=== PATIENT | female | born 1980 | race Caucasian/White ===

== ENCOUNTER 2016-06-26 02:29 | Inpatient (IN) | payer OTHER ==
[~2016-06-26] VITALS: Ht 165.1 cm; Wt 110.7 kg
[2016-06-26] MEDS ORDERED: ONDANSETRON 4 MG VIAL ONE ×2 (04:11→07:56)
[2016-06-26] MEDS ORDERED: DILAUDID 1 MG/ML AMP ONE ×4 (04:22→08:18)
[2016-06-26] MEDS ORDERED: VANCOMYCIN 2,250 MG in SODIUM CHLORIDE 0.9% 500 ML IV ONE (08:25)
[2016-06-26] MEDS ORDERED: ACETAMINOPHEN 325 MG TAB PO PRN (08:30)
[2016-06-26] MEDS ORDERED: GLUCAGON 1 MG VIAL IM PRN (08:30)
[2016-06-26] MEDS ORDERED: ALU/MAG/SIM 30 ML UDC PO PRN (08:30)
[2016-06-26] MEDS ORDERED: DEXTROSE 50% SYRINGE 50 ML IV PRN (08:30)
[2016-06-26] MEDS ORDERED: BISACODYL 10 MG SUPP RECTAL PRN (08:30)
[2016-06-26] MEDS ORDERED: PHARMACY TO DOSE IV SCH (08:30)
[2016-06-26] MEDS ORDERED: SALINE FLUSH 10 ML FLUSH PRN (08:30)
[2016-06-26] MEDS ORDERED: BISACODYL EC 5 MG TAB PO PRN (08:30)
[2016-06-26] MEDS ORDERED: PHARMACY TO DOSE LEVAQUIN IV SCH (08:40)
[2016-06-26] MEDS ORDERED: humuLIN REG INSULIN ONE (09:24)
[2016-06-26] MEDS ORDERED: LIDOCAINE 2% SYR 5 ML IV ONE (10:25)
[2016-06-26] MEDS ORDERED: ROCURONIUM 50 MG VIAL IV ONE (10:25)
[2016-06-26] MEDS ORDERED: DEXAMETHASONE 4 MG/ML VIAL IV ONE (10:25)
[2016-06-26] MEDS ORDERED: FENTANYL 100 MCG/2 ML AMP IV ONE (10:25)
[2016-06-26] MEDS ORDERED: ESMOLOL 100 MG/10 ML VL IV ONE (10:25)
[2016-06-26] MEDS ORDERED: ONDANSETRON 4 MG VIAL IV PUSH ONE (10:25)
[2016-06-26] MEDS ORDERED: PROPOFOL 20 ML PER ML IV ONE (10:25)
[2016-06-26] MEDS ORDERED: NEOSTIGMINE 10 MG/10 ML VIAL IV ONE (10:25)
[2016-06-26] MEDS ORDERED: SUCCINYLCHOLINE 20 MG/ML VL IV ONE (10:25)
[2016-06-26] MEDS ORDERED: GLYCOPYRROLATE 0.2 MG/ML VIAL IV ONE (10:25)
[2016-06-26 11:33] VITALS: BP_SYST 112; RESP 20; TEMP 97.5
[2016-06-26 11:38] VITALS: BMI 40.6
[2016-06-26] MEDS ORDERED: ADD HEIGHT XX SCH (11:38)
[2016-06-26] MEDS ORDERED: [UNRECOGNIZED DRUG - OTHER] XX SCH (11:38)
[2016-06-26] MEDS ORDERED: MORPHINE 2 MG/ML SYR IV PRN (13:00)
[2016-06-26] MEDS: MORPHINE 4 MG/ML SYR IV PRN ×2 (13:09→16:00)
[2016-06-26] MEDS: ONDANSETRON 4 MG VIAL IV PRN ×2 (13:55→20:46)
[2016-06-26 14:58] VITALS: BP_SYST 118; RESP 20; TEMP 97.8
[2016-06-26] MEDS: DILAUDID 1 MG/ML AMP IV PRN ×2 (19:23→23:27)
[2016-06-26] MEDS ORDERED: VANCOMYCIN 1,000 MG in SODIUM CHLORIDE 0.9% 250 ML IV SCH (20:00)
[2016-06-26] MEDS: SALINE FLUSH 10 ML FLUSH SCH (20:24)
[2016-06-26] MEDS: FAMOTIDINE 20 MG TAB PO SCH (20:24)
[2016-06-26] MEDS: SACCHA BOULARDII 250MG CAP PO SCH (20:24)
[2016-06-26] MEDS: VANCOMYCIN 1,250 MG in SODIUM CHLORIDE 0.9% 250 ML IV SCH (20:25)
[2016-06-26 20:40] VITALS: BP_SYST 118; RESP 20; TEMP 97.1
[2016-06-26 23:41] VITALS: BP_SYST 130; RESP 20; TEMP 97.8
[2016-06-27] MEDS: ONDANSETRON 4 MG VIAL IV PRN ×4 (01:21→23:00)
[2016-06-27 04:55] VITALS: BP_SYST 115; RESP 20; TEMP 97.3
[2016-06-27] MEDS: DILAUDID 1 MG/ML AMP IV PRN ×5 (05:06→23:01)
[2016-06-27] MEDS: VANCOMYCIN 1,250 MG in SODIUM CHLORIDE 0.9% 250 ML IV SCH ×3 (05:07→20:00)
[2016-06-27] MEDS: SODIUM CHLORIDE 0.9% FLUSH BAG 500 ML IV SCH (05:07)
[2016-06-27 07:47] VITALS: BP_SYST 122; RESP 20; TEMP 96.8
[2016-06-27] MEDS: SACCHA BOULARDII 250MG CAP PO SCH ×2 (09:13→20:44)
[2016-06-27] MEDS: FAMOTIDINE 20 MG TAB PO SCH ×2 (09:14→20:44)
[2016-06-27] MEDS: SALINE FLUSH 10 ML FLUSH SCH ×2 (09:15→20:38)
[2016-06-27] MEDS: LEVOFLOXACIN 500 MG/100 ML 100 ML IV SCH (09:15)
[2016-06-27 09:19] VITALS: Ht 165.1 cm; Wt 110.7 kg
[2016-06-27 12:39] VITALS: BP_SYST 102; RESP 20; TEMP 96.9
[2016-06-27 16:45] VITALS: BP_SYST 108; RESP 20; TEMP 97.2
[2016-06-27 20:00] VITALS: BP_SYST 110; RESP 20; TEMP 97.8
[2016-06-27] MEDS: VANCOMYCIN 1,750 MG in SODIUM CHLORIDE 0.9% 500 ML IV SCH (21:17)
[2016-06-27 23:14] VITALS: BP_SYST 100; RESP 20; TEMP 97.5
[2016-06-28 03:00] VITALS: BP_SYST 116; RESP 20; TEMP 97.3
[2016-06-28] MEDS: ONDANSETRON 4 MG VIAL IV PRN ×3 (04:09→12:18)
[2016-06-28] MEDS: DILAUDID 1 MG/ML AMP IV PRN ×5 (04:17→22:34)
[2016-06-28] MEDS: MAG HYDROX 30 ML UDC PO PRN (04:23)
[2016-06-28] MEDS: VANCOMYCIN 1,750 MG in SODIUM CHLORIDE 0.9% 500 ML IV SCH ×2 (04:25→13:00)
[2016-06-28] MEDS: SODIUM CHLORIDE 0.9% FLUSH BAG 500 ML IV SCH (04:28)
[2016-06-28 07:29] VITALS: BP_SYST 122; RESP 16; TEMP 97.8
[2016-06-28] MEDS: SALINE FLUSH 10 ML FLUSH SCH ×2 (08:52→21:18)
[2016-06-28] MEDS: LEVOFLOXACIN 500 MG/100 ML 100 ML IV SCH (08:53)
[2016-06-28] MEDS: FAMOTIDINE 20 MG TAB PO SCH ×2 (08:55→21:34)
[2016-06-28] MEDS: SACCHA BOULARDII 250MG CAP PO SCH ×2 (08:56→21:20)
[2016-06-28 11:29] VITALS: BP_SYST 122; RESP 16; TEMP 96.8
[2016-06-28] MEDS ORDERED: PROMETHAZINE 25 MG/ML VIAL IV PRN (13:00)
[2016-06-28 15:53] VITALS: BP_SYST 122; RESP 16; TEMP 97.4
[2016-06-28] MEDS: TETRAHYDROZOLINE HCL 15 ML BTL EYE EACH SCH ×2 (16:59→21:18)
[2016-06-28] MEDS: TOBRAMYCIN EAR LT SCH ×2 (17:00→22:28)
[2016-06-28] MEDS: DEXAMETH OP EAR LT SCH ×2 (17:00→22:28)
[2016-06-28 19:17] VITALS: BP_SYST 128; RESP 18; TEMP 97.2
[2016-06-28] MEDS: LEVEMIR INSULIN SUBQ SCH (21:25)
[2016-06-28 22:46] VITALS: BP_SYST 112; RESP 18; TEMP 97.6
[2016-06-28] MEDS ORDERED: MISSING DOSE XX ONE (23:00)
[2016-06-29 04:50] VITALS: BP_SYST 126; RESP 18; TEMP 97.6
[2016-06-29] MEDS: DILAUDID 1 MG/ML AMP IV PRN ×5 (04:58→22:49)
[2016-06-29] MEDS: SODIUM CHLORIDE 0.9% FLUSH BAG 500 ML IV SCH (05:25)
[2016-06-29 08:15] VITALS: BP_SYST 124; RESP 22; TEMP 99.1
[2016-06-29] MEDS: TOBRAMYCIN EAR LT SCH ×3 (10:06→21:16)
[2016-06-29] MEDS: SALINE FLUSH 10 ML FLUSH SCH ×2 (10:06→21:16)
[2016-06-29] MEDS: DEXAMETH OP EAR LT SCH ×3 (10:06→21:16)
[2016-06-29] MEDS: TETRAHYDROZOLINE HCL 15 ML BTL EYE EACH SCH ×3 (10:06→21:16)
[2016-06-29] MEDS: SACCHA BOULARDII 250MG CAP PO SCH ×2 (10:07→21:16)
[2016-06-29] MEDS: LEVOFLOXACIN 750 MG TAB PO SCH (10:07)
[2016-06-29] MEDS: FAMOTIDINE 20 MG TAB PO SCH ×2 (10:07→21:17)
[2016-06-29 10:51] VITALS: BP_SYST 114; RESP 22; TEMP 98.3
[2016-06-29] MEDS: MAG HYDROX 30 ML UDC PO PRN (14:18)
[2016-06-29 15:05] VITALS: BP_SYST 90; RESP 16; TEMP 98.6
[2016-06-29] MEDS: ONDANSETRON 4 MG VIAL IV PRN ×2 (17:38→18:43)
[2016-06-29 19:18] VITALS: BP_SYST 102; RESP 18; TEMP 98.6
[2016-06-29] MEDS: LEVEMIR INSULIN SUBQ SCH (21:55)
[2016-06-29] MEDS ORDERED: NYSTATIN 500,000 UNITS/5 ML SUSP SWISH.SWAL ONE (22:07)
[2016-06-29] MEDS ORDERED: DOCUSATE SOD 100 MG CAP PO ONE (22:07)
[2016-06-29] MEDS ORDERED: FLUCONAZOLE 100 MG TAB PO ONE (22:10)
[2016-06-29 23:39] VITALS: BP_SYST 102; RESP 20; TEMP 98
[2016-06-30 03:46] VITALS: BP_SYST 98; RESP 18; TEMP 97.6
[2016-06-30] MEDS: DILAUDID 1 MG/ML AMP IV PRN ×3 (04:17→20:42)
[2016-06-30] MEDS: SODIUM CHLORIDE 0.9% FLUSH BAG 500 ML IV SCH (06:00)
[2016-06-30 08:03] VITALS: BP_SYST 102; RESP 18; TEMP 98
[2016-06-30] MEDS: SALINE FLUSH 10 ML FLUSH SCH ×2 (08:47→20:38)
[2016-06-30] MEDS ORDERED: CYCLOBENZAPRINE 5 MG TAB PO PRN (09:15)
[2016-06-30] MEDS: POLYETHYLENE GLYCOL 17 GM PACKET PO SCH ×2 (09:50→20:40)
[2016-06-30] MEDS: TETRAHYDROZOLINE HCL 15 ML BTL EYE EACH SCH ×3 (09:58→20:39)
[2016-06-30] MEDS: SACCHA BOULARDII 250MG CAP PO SCH ×2 (09:58→20:39)
[2016-06-30] MEDS: DOCUSATE SOD 100 MG CAP PO SCH ×2 (09:58→20:39)
[2016-06-30] MEDS: DEXAMETH OP EAR LT SCH ×3 (09:58→20:39)
[2016-06-30] MEDS: LEVOFLOXACIN 750 MG TAB PO SCH (09:58)
[2016-06-30] MEDS: TOBRAMYCIN EAR LT SCH ×3 (09:58→20:39)
[2016-06-30] MEDS: NYSTATIN 500,000 UNITS/5 ML SUSP SWISH.SWAL SCH ×4 (09:59→20:40)
[2016-06-30] MEDS: FLUCONAZOLE 100 MG TAB PO SCH (09:59)
[2016-06-30] MEDS: FAMOTIDINE 20 MG TAB PO SCH ×2 (09:59→20:40)
[2016-06-30 11:51] VITALS: BP_SYST 112; RESP 18; TEMP 98.1
[2016-06-30 15:47] VITALS: BP_SYST 114; RESP 22; TEMP 97.9
[2016-06-30] MEDS: ACETAMIN/BUTALB/CAFF PO PRN (18:26)
[2016-06-30 20:13] VITALS: BP_SYST 130; RESP 18; TEMP 97.8
[2016-06-30] MEDS: LEVEMIR INSULIN SUBQ SCH (20:41)
[2016-06-30] MEDS: ONDANSETRON 4 MG VIAL IV PRN (20:42)
[2016-07-01 00:20] VITALS: BP_SYST 126; RESP 20; TEMP 98.1
[2016-07-01] MEDS: DILAUDID 1 MG/ML AMP IV PRN ×3 (04:04→17:15)
[2016-07-01 05:00] VITALS: BP_SYST 112; RESP 20; TEMP 97.1
[2016-07-01] MEDS: SODIUM CHLORIDE 0.9% FLUSH BAG 500 ML IV SCH (07:46)
[2016-07-01] MEDS: SALINE FLUSH 10 ML FLUSH SCH ×2 (08:24→21:55)
[2016-07-01] MEDS: TETRAHYDROZOLINE HCL 15 ML BTL EYE EACH SCH ×3 (08:25→22:06)
[2016-07-01] MEDS: DOCUSATE SOD 100 MG CAP PO SCH ×2 (08:25→21:58)
[2016-07-01] MEDS: TOBRAMYCIN EAR LT SCH ×3 (08:25→22:05)
[2016-07-01] MEDS: DEXAMETH OP EAR LT SCH ×3 (08:25→22:05)
[2016-07-01] MEDS: FLUCONAZOLE 100 MG TAB PO SCH (08:26)
[2016-07-01] MEDS: FAMOTIDINE 20 MG TAB PO SCH ×2 (08:26→21:58)
[2016-07-01] MEDS: NYSTATIN 500,000 UNITS/5 ML SUSP SWISH.SWAL SCH ×4 (08:26→22:08)
[2016-07-01] MEDS: SACCHA BOULARDII 250MG CAP PO SCH ×2 (08:26→21:58)
[2016-07-01] MEDS: POLYETHYLENE GLYCOL 17 GM PACKET PO SCH ×2 (08:28→21:56)
[2016-07-01] MEDS: LEVOFLOXACIN 750 MG TAB PO SCH (08:28)
[2016-07-01 08:52] VITALS: BP_SYST 120; RESP 18; TEMP 97.7
[2016-07-01] MEDS: ONDANSETRON 4 MG VIAL IV PRN (10:23)
[2016-07-01 12:06] VITALS: BP_SYST 110; TEMP 99.6
[2016-07-01] MEDS ORDERED: MIDAZOLAM 2 MG/2 ML INJ IV ONE (14:25)
[2016-07-01] MEDS ORDERED: LIDOCAINE 1% BUFFERED 1 ML SYR INTRADERM PRN (14:25)
[2016-07-01] MEDS ORDERED: GLYCOPYRROLATE 0.2 MG/ML VIAL IV ONE (14:25)
[2016-07-01] MEDS ORDERED: LACT RINGERS 1,000 ML IV SCH (14:25)
[2016-07-01 15:14] VITALS: BP_SYST 112; RESP 18; TEMP 97.4
[2016-07-01] MEDS ORDERED: MISSING DOSE XX ONE (16:30)
[2016-07-01] MEDS: ACETAMIN/BUTALB/CAFF PO PRN (16:37)
[2016-07-01 19:00] VITALS: BP_SYST 122; RESP 20; TEMP 98
[2016-07-01] MEDS: LEVEMIR INSULIN SUBQ SCH (19:24)
[2016-07-02] VITALS (18 sets, daily range): BP systolic 101–128; RESP 16–20; TEMP 96.2–98.4
[2016-07-02] MEDS: DILAUDID 1 MG/ML AMP IV PRN ×5 (03:49→20:13)
[2016-07-02] MEDS: SODIUM CHLORIDE 0.9% FLUSH BAG 500 ML IV SCH (07:55)
[2016-07-02] MEDS: FAMOTIDINE 20 MG TAB PO SCH ×2 (08:31→19:57)
[2016-07-02] MEDS: DOCUSATE SOD 100 MG CAP PO SCH ×2 (08:31→19:58)
[2016-07-02] MEDS: NYSTATIN 500,000 UNITS/5 ML SUSP SWISH.SWAL SCH ×4 (08:31→19:58)
[2016-07-02] MEDS: SACCHA BOULARDII 250MG CAP PO SCH ×2 (08:31→19:58)
[2016-07-02] MEDS: SALINE FLUSH 10 ML FLUSH SCH ×2 (08:32→20:02)
[2016-07-02] MEDS: FLUCONAZOLE 100 MG TAB PO SCH (08:32)
[2016-07-02] MEDS: POLYETHYLENE GLYCOL 17 GM PACKET PO SCH ×2 (08:32→19:58)
[2016-07-02] MEDS: LEVOFLOXACIN 750 MG TAB PO SCH (08:32)
[2016-07-02] MEDS: TETRAHYDROZOLINE HCL 15 ML BTL EYE EACH SCH ×3 (08:33→20:04)
[2016-07-02] MEDS: DEXAMETH OP EAR LT SCH ×3 (08:34→21:00)
[2016-07-02] MEDS: TOBRAMYCIN EAR LT SCH ×3 (08:34→21:00)
[2016-07-02] MEDS ORDERED: MISSING DOSE XX ONE ×2 (08:45→22:10)
[2016-07-02] MEDS ORDERED: MIDAZOLAM 2 MG/2 ML INJ ONE (14:09)
[2016-07-02] MEDS ORDERED: MORPHINE 2 MG/ML SYR IV PRN (15:25)
[2016-07-02] MEDS ORDERED: OXYCODONE 5 MG TAB PO PRN (15:25)
[2016-07-02] MEDS ORDERED: MORPHINE 4 MG/ML SYR IV PRN (15:25)
[2016-07-02] MEDS ORDERED: MEPERIDINE 25 MG/ML IV PRN (15:25)
[2016-07-02] MEDS ORDERED: ONDANSETRON 4 MG VIAL IV PRN (15:25)
[2016-07-02] MEDS: LEVEMIR INSULIN SUBQ SCH (22:48)
[2016-07-03 03:30] VITALS: BP_SYST 100; RESP 16; TEMP 97.7
[2016-07-03] MEDS: SODIUM CHLORIDE 0.9% FLUSH BAG 500 ML IV SCH (06:00)
[2016-07-03 07:51] VITALS: BP_SYST 110; RESP 20; TEMP 96.4
[2016-07-03] MEDS ORDERED: MISSING DOSE XX ONE (09:15)
[2016-07-03] MEDS: SALINE FLUSH 10 ML FLUSH SCH (09:25)
[2016-07-03] MEDS: TETRAHYDROZOLINE HCL 15 ML BTL EYE EACH SCH (09:27)
[2016-07-03] MEDS: LEVOFLOXACIN 750 MG TAB PO SCH (09:28)
[2016-07-03] MEDS: POLYETHYLENE GLYCOL 17 GM PACKET PO SCH (09:29)
[2016-07-03] MEDS: NYSTATIN 500,000 UNITS/5 ML SUSP SWISH.SWAL SCH ×2 (09:29→13:29)
[2016-07-03] MEDS: DILAUDID 1 MG/ML AMP IV PRN (11:12)
[2016-07-03 12:03] VITALS: BP_SYST 110; RESP 20; TEMP 97.8
[2016-07-03] MEDS: TOBRAMYCIN EAR LT SCH (13:24)
[2016-07-03] MEDS: DEXAMETH OP EAR LT SCH (13:24)
[2016-07-03] MEDS: DOCUSATE SOD 100 MG CAP PO SCH (13:25)
[2016-07-03] MEDS: FAMOTIDINE 20 MG TAB PO SCH (13:25)
[2016-07-03] MEDS: SACCHA BOULARDII 250MG CAP PO SCH (13:26)
[2016-07-03 14:19] VITALS: BP_SYST 110; RESP 18; TEMP 97.8
== END 2016-07-03 15:26 | disposition home or self-care (01) | DRG 133 ==
LOC: ENRESERVDT → ENRESERVTM → ER 02:29 → ENPENDDIS 08:52 → EMR 08:52 → 4NT 11:23
PROVIDERS: ADMIT Internal Medicine; ATTEND Internal Medicine
PROC: 09C4XZZ Extirpation of Matter from Left External Auditory Canal, External Approach (ICD-10-PCS; 2016-07-02)
PROC: 099600Z Drainage of Left Middle Ear with Drainage Device, Open Approach (ICD-10-PCS; principal; 2016-07-02 15:16)
DX: H70.002 Acute mastoiditis without complications, left ear (principal); B37.0 Candidal stomatitis; E11.43 Type 2 diabetes mellitus with diabetic autonomic (poly)neuropathy; K31.84 Gastroparesis; E11.65 Type 2 diabetes mellitus with hyperglycemia; Z68.41 Body mass index [BMI] 40.0-44.9, adult; H66.3X2 Other chronic suppurative otitis media, left ear; S04 Injury of cranial nerve; H60.12 Cellulitis of left external ear; V49.9XXS Car occupant (driver) (passenger) injured in unspecified traffic accident, sequela; K21.9 Gastro-esophageal reflux disease without esophagitis; I34.1 Nonrheumatic mitral (valve) prolapse; Z79.84 Long term (current) use of oral hypoglycemic drugs; H90.72 Mixed conductive and sensorineural hearing loss, unilateral, left ear, with unrestricted hearing on the contralateral side; B96.5 Pseudomonas (aeruginosa) (mallei) (pseudomallei) as the cause of diseases classified elsewhere; E66.9 Obesity, unspecified; Z71.3 Dietary counseling and surveillance
CPT/HCPCS: 36415; 70481; 80048; 80053; 80202; 82947; 83036; 84439; 84443; 84703; 85025; 87071; 87077; 87186; 87205; 94799; 96365; 96367; 96372; 96375; 96376; 99223; 99232; 99233; 99239

== ENCOUNTER 2016-07-05 13:51 | Emergency (ER) | payer OTHER ==
[2016-07-05] MEDS ORDERED: DILAUDID 1 MG/ML AMP ONE ×2 (17:28→18:38)
[2016-07-05] MEDS ORDERED: ONDANSETRON ODT 4 MG TAB ONE (17:28)
== END 2016-07-05 22:07 | disposition home or self-care (01) ==
LOC: ER 13:51
DX: H70.002 Acute mastoiditis without complications, left ear (principal); H60.8X2 Other otitis externa, left ear; H92.02 Otalgia, left ear; E11.9 Type 2 diabetes mellitus without complications; Z79.4 Long term (current) use of insulin; Z79.84 Long term (current) use of oral hypoglycemic drugs; Z79.899 Other long term (current) drug therapy
CPT/HCPCS: 70480; 82947; 96372